=== PATIENT | female | born 2005 ===

== ENCOUNTER 2023-09-25 10:57 | Emergency (ER) | payer BC ==
[2023-09-25 11:48] LABS: BASOPHILS PERCENT AUTO 0.3 % (0.0-1.0); HEMATOCRIT 44.3 % (37.0-47.0); HEMOGLOBIN 15.6 g/dL (12.0-16.0); LYMPHOCYTES PERCENT AUTO 14.5 % (20.5-50.1); MEAN CORPUSCULAR HEMOGLOBIN 30.6 pg (27.0-34.0); MEAN CORPUSCULAR HGB CONC 35.2 g/dL (33.0-35.0); MEAN CORPUSCULAR VOLUME 86.9 fL (80-100); MONOCYTES PERCENT AUTO 10.5 % (2-8); NEUTROPHILS PERCENT AUTO 72.7 % (42.2-75.2); PLATELET COUNT,PLT 403 10^3/uL (150-450)
[2023-09-25 12:09] LABS: A/G RATIO 1.2; ALANINE AMINOTRANSFERASE,ALT 21 U/L (14-59); ALBUMIN 4.3 g/dL (3.4-5.0); ALKALINE PHOSPHATASE 82 U/L (46-116); AMYLASE 60 U/L (25-115); ANION GAP 10.9 mEq/L (7-13); ASPARTATE AMNIOTRANSFERASE,AST 10 U/L (15-37); BILIRUBIN TOTAL 0.6 mg/dL (0.2-1.0); BLOOD UREA NITROGEN,BUN 7 mg/dL (7-18); BUN/CREATININE RATIO 10.1 (No establ ref range); CARBON DIOXIDE,CO2 28 mmol/L (21-32); CHLORIDE,CL 104 mmol/L (98-107); CREATININE 0.69 mg/dL (0.55-1.02); EST CRCL DRUG DOSING (CG) 98.14 mL/min; GLUCOSE RANDOM 100 mg/dL (70-99); LIPASE 32 U/L (16-77); POTASSIUM,K 3.9 mmol/L (3.5-5.1); PROTEIN TOTAL,TP 7.8 g/dL (6.4-8.2); SODIUM,NA 139 mmol/L (136-145)
[2023-09-25] MEDS: Sodium Chloride 0.9% 10 ML Syringe FLUSH PRN (12:11)
[2023-09-25] MEDS: Ondansetron 4 MG/2 ML SDV IVPUSH ONE (12:12)
[2023-09-25 12:14] LABS: ESTIMATED GFR 127 mL/min (>=60)
[2023-09-25 12:15] LABS: C-REACTIVE PROTEIN < 0.50 ng/dL (<=0.50); LACTIC ACID 2.3 mmol/L (0.4-2.0)
== END 2023-09-25 12:42 | disposition home or self-care (01) ==
LOC: DL.ED 10:57
DX: K52.9 Noninfective gastroenteritis and colitis, unspecified (principal)
CPT/HCPCS: 36415; 80053; 82150; 83605; 83690; 85025; 86140; 96374; 99283; 99284-25; J2405; J3490